=== PATIENT | male | born 1950 | race Caucasian/White ===

== ENCOUNTER → 2023-07-29 10:09 | Outpatient (REF) | payer MEDICARE, OTHER, SELFPAY ==
[2023-07-29 13:45] LABS: TSH 5.21 uIU/ml (0.47-4.68)
== END ==
LOC: REG 10:09
PROVIDERS: ATTENDING PHYSICIAN Internal Medicine Endocrinology, Diabetes & Metabolism; FAMILY PHYSICIAN Family Medicine
DX: E89.0 Postprocedural hypothyroidism (principal)
CPT/HCPCS: 36415; 84443

== ENCOUNTER 2023-08-08 14:19 | Outpatient (RCR) | payer MEDICARE, OTHER, SELFPAY | END 2023-08-08 23:59 | disposition home or self-care (01) | LOC: ROT 14:19 | PROVIDERS: ATTENDING PHYSICIAN Psychiatry & Neurology Neurology; FAMILY PHYSICIAN Family Medicine | DX: R41.3 Other amnesia (principal); Z73.6 Limitation of activities due to disability; R41.841 Cognitive communication deficit; R47.02 Dysphasia; E05.00 Thyrotoxicosis with diffuse goiter without thyrotoxic crisis or storm; R25.1 Tremor, unspecified | CPT/HCPCS: 96125; 97129; 97130; 97167; 97530; 97535 ==

== ENCOUNTER 2023-09-09 13:39 | Outpatient (RCR) | payer MEDICARE, OTHER, SELFPAY | END 2023-09-09 23:59 | disposition home or self-care (01) | LOC: ROT 13:39 | PROVIDERS: ATTENDING PHYSICIAN Psychiatry & Neurology Neurology; FAMILY PHYSICIAN Family Medicine | DX: R41.3 Other amnesia (principal); R41.841 Cognitive communication deficit; R47.02 Dysphasia | CPT/HCPCS: 97129; 97130; 97530; 97535 ==

== ENCOUNTER 2023-09-20 06:49 | Outpatient (RCR) | payer MEDICARE, OTHER, SELFPAY | END 2023-09-24 14:59 | disposition home or self-care (01) | LOC: ROT 06:49 | PROVIDERS: ATTENDING PHYSICIAN Psychiatry & Neurology Neurology; FAMILY PHYSICIAN Family Medicine | DX: R41.3 Other amnesia (principal); R41.0 Disorientation, unspecified; R41.841 Cognitive communication deficit; R47.02 Dysphasia; Z73.6 Limitation of activities due to disability | CPT/HCPCS: 97129; 97130; 97530; 97535 ==

== ENCOUNTER → 2023-11-12 09:06 | Outpatient (REF) | payer MEDICARE, OTHER, SELFPAY ==
[2023-11-12 10:11] LABS: % Basophils 0.8 % (0-2); % Eosinophils 1.4 % (0-6); % Immature Granulocytes 0.3 % (0-0.5); % Lymphocytes 38.7 % (20.5-51.1); % Monocytes 10.1 % (1.7-9.3); % Neutrophils 48.7 % (42.2-75.2); Absolute Eosinophils 0.1 10^3/uL (0-0.7); Absolute Lymphocytes 1.4 10^3/uL (1.2-3.4); Absolute Monocytes 0.4 10^3/uL (0.1-0.6); Absolute Neutrophils 1.7 10^3/uL (1.4-6.5); Hematocrit 42.7 % (39.0-52.0); Hemoglobin 14.6 g/dL (13.0-18.0); Mean Corp Hgb Conc. 34.2 g/dL (33.0-37.0); Mean Corpuscular Hgb 31.3 pg (27.0-31.0); Mean Corpuscular Volume 91.4 fL (80.0-94.0); Mean Platelet Volume 9.1 fL (7.4-10.4); Nucleated Red Blood Cells % 0 % (-); Platelet Count 177 10^3/uL (130-400); Red Blood Cell Count 4.67 10^6/uL (4.70-6.10); Red Cell Dist. Width 13.6 % (11.5-14.5); White Blood Cell Count 3.6 10^3/uL (4.8-10.8)
[2023-11-12 10:59] LABS: ALT (SGPT) 20 U/L (0-50); AST (SGOT) 32 U/L (17-59); Albumin 4.4 g/dl (3.5-5.0); Alkaline Phosphatase 62 U/L (38-126); Blood Urea Nitrogen 21 mg/dl (9-20); Calcium 9.7 mg/dl (8.4-10.2); Carbon Dioxide 28 mmol/L (22-30); Chloride 103 mmol/L (98-107); Glucose 93 mg/dl (70-99); HDL Cholesterol 68 mg/dl; LDL Cholesterol, Calculated 162 mg/dl; Potassium 4.4 mmol/L (3.5-5.1); Sodium 139 mmol/L (135-145); Total Bilirubin 0.8 mg/dl (0.2-1.3); Total Cholesterol 244 mg/dl (50-199); Triglyceride 70 mg/dl (10-149); Very Low Density Lipoprotein 14 mg/dl (0-30); eGFR > 60.00
[2023-11-12 11:24] LABS: PSA, Total - Screen 2.67 ng/ml (0.0-4.0)
== END ==
LOC: REG 09:06
PROVIDERS: ATTENDING PHYSICIAN Family Medicine
DX: I10 Essential (primary) hypertension (principal); R79.9 Abnormal finding of blood chemistry, unspecified; Z12.5 Encounter for screening for malignant neoplasm of prostate
CPT/HCPCS: 36415; 80053; 80061; 85025; G0103

== ENCOUNTER 2023-12-05 14:19 | Outpatient (RCR) | payer MEDICARE, OTHER, SELFPAY | END 2023-12-05 15:08 | disposition home or self-care (01) | LOC: RPT 14:19 | PROVIDERS: ATTENDING PHYSICIAN Physical Medicine & Rehabilitation; FAMILY PHYSICIAN Family Medicine | DX: M47.816 Spondylosis without myelopathy or radiculopathy, lumbar region (principal); M53.86 Other specified dorsopathies, lumbar region; Z73.6 Limitation of activities due to disability | CPT/HCPCS: 97110; 97112; 97140; 97162; 97530 ==

== ENCOUNTER → 2024-02-08 08:56 | Outpatient (REF) | payer MEDICARE, OTHER, SELFPAY | LOC: REG 08:56 | PROVIDERS: ATTENDING PHYSICIAN Internal Medicine Endocrinology, Diabetes & Metabolism | DX: E89.0 Postprocedural hypothyroidism (principal) | CPT/HCPCS: 36415; 84443 ==

== ENCOUNTER 2024-07-08 06:28 | Day surgery (SDC) | payer MEDICARE, OTHER, SELFPAY ==
[2024-07-08 06:48] VITALS: BMI 20.8
[2024-07-08 07:01] VITALS: BP 143/77
[2024-07-08 07:10] LABS: Hematocrit 44.6 % (39.0-52.0); Mean Corp Hgb Conc. 33.6 g/dL (33.0-37.0); Mean Corpuscular Hgb 32.2 pg (27.0-31.0); Mean Corpuscular Volume 95.7 fL (80.0-94.0); Mean Platelet Volume 8.9 fL (7.4-10.4); Platelet Count 165 10^3/uL (130-400); Red Blood Cell Count 4.66 10^6/uL (4.70-6.10); Red Cell Dist. Width 13.6 % (11.5-14.5); White Blood Cell Count 4.3 10^3/uL (4.8-10.8)
[2024-07-08] MEDS: VANCOCIN 200 IV (07:10)
[2024-07-08 07:24] LABS: ALT (SGPT) 22 U/L (0-50); AST (SGOT) 32 U/L (17-59); Albumin 4.4 g/dl (3.5-5.0); Alkaline Phosphatase 61 U/L (38-126); Blood Urea Nitrogen 25 mg/dl (9-20); Carbon Dioxide 31 mmol/L (22-30); Chloride 103 mmol/L (98-107); Estimated Creatinine Clearance 58 ml/min; Glucose 96 mg/dl (70-99); Potassium 4.2 mmol/L (3.5-5.1); Sodium 138 mmol/L (135-145); Total Bilirubin 0.9 mg/dl (0.2-1.3); Total Protein 7.2 g/dl (6.3-8.2); eGFR > 60.00
--- NOTE | 2024-07-08 07:41 | PTCARENOTE ---
Pt arrived from home with pt's for a Medtronic dual chamber pacemaker generator change. Pt initally unable to state his name or . Pt's states pt has dementia for 2-3 years and 'his memory comes and goes.' Pt able to answer some
questions but not all questions. Once pt questioned again, pt able to answer his name and date of . Dr Rizzo made aware and in to evaluate pt. Pt's at pt bedside. No treatment ordered at this time.
[2024-07-08 08:49] VITALS: BP 128/76
--- NOTE | 2024-07-08 09:06 | ITS.CL.PACE ---
[facility] - Pacemaker Implant
Pacemaker Implant
Procedure Report:
PACEMAKER GENERATOR CHANGE
Date of Procedure: 07/08/24
Primary Care Provider: Dr Suma Lyons
PROCEDURES:
1. Removal of dual chamber PPM generator at [facility]
2. Implant of new dual chamber PPM generator
INDICATION FOR PROCEDURE:
1. PPM generator at [facility]
2. Non-reversible symptomatic bradycardia due to sinus node dysfunction.
The patient was prepped and draped in sterile fashion. Lidocaine with epi was used for local anesthesia. An incision was made along the previous incision and the device and leads were carefully dissected from the pocket. Hemostasis was obtained
with electrocautery. The leads were from the device header and tested using an external analyzer. The pocket was liberally irrigated with antibiotic solution. Once testing (see below) showed adequate and stable function, the leads were
connected to the generator header and the leads and generator were placed within the pocket. The pocket was closed in the typical fashion.
EXPLANTED PPM GENERATOR:
Medtronic [id number], serial number [id number]
IMPLANTED PPM GENERATOR:
Medtronic [id number], SN [id number]
RETAINED LEADS:
Existing RA lead: Medtronic 5076, PJ [id number], implanted 04/09/2005
Existing RVLead: Medtronic 5076, PJ [id number], implanted 04/09/2005
DEVICE TESTING:
Sensing: RA 1.5 mV, RV 4 mV
Capture: RA 1.5 V @ 0.4ms, RV 2 V @ 0.4ms
Ohms: RA 420, RV 530
FINAL PROGRAMMING
Usman Pacing: AAIR <=>DDDR 60 - 130 ppm
COMPLICATIONS:
None
CONCLUSIONS:
1. Successful explant of dual chamber permanent pacemaker
2. Successful implant of dual chamber permanent pacemaker
RECOMMENDATIONS:
1. In-Office wound check in 7-10 days.
Copy to: Dr Suma Lyons
== END 2024-07-08 10:15 | disposition home or self-care (01) ==
LOC: CATH 06:28
PROVIDERS: ATTENDING PHYSICIAN Internal Medicine Cardiovascular Disease; FAMILY PHYSICIAN Family Medicine
DX: Z45.010 Encounter for checking and testing of cardiac pacemaker pulse generator [battery] (principal); I49.5 Sick sinus syndrome; Z79.890 Hormone replacement therapy; Z79.899 Other long term (current) drug therapy; Z88.1 Allergy status to other antibiotic agents
CPT/HCPCS: 33228; 80053; 85027; C1785

== ENCOUNTER → 2024-08-10 12:17 | Outpatient (REF) | payer MEDICARE, OTHER, SELFPAY | LOC: REG 12:17 | PROVIDERS: ATTENDING PHYSICIAN Internal Medicine Endocrinology, Diabetes & Metabolism | DX: E89.0 Postprocedural hypothyroidism (principal) | CPT/HCPCS: 36415; 84443 ==

== ENCOUNTER 2024-10-07 16:27 | Outpatient (RCR) | payer MEDICARE, OTHER, SELFPAY | END 2024-10-07 23:59 | disposition home or self-care (01) | LOC: ROT 16:27 | PROVIDERS: ATTENDING PHYSICIAN Nurse Practitioner Adult Health; FAMILY PHYSICIAN Family Medicine | DX: R41.3 Other amnesia (principal); Z73.6 Limitation of activities due to disability; R26.89 Other abnormalities of gait and mobility; F03.90 Unspecified dementia, unspecified severity, without behavioral disturbance, psychotic disturbance, mood disturbance, and anxiety; E05.00 Thyrotoxicosis with diffuse goiter without thyrotoxic crisis or storm | CPT/HCPCS: 97167; 97530; 97535 ==

== ENCOUNTER 2024-10-15 16:41 | Outpatient (RCR) | payer MEDICARE, OTHER, SELFPAY | END 2024-10-15 23:59 | disposition home or self-care (01) | LOC: ROT 16:41 | PROVIDERS: ATTENDING PHYSICIAN Nurse Practitioner Adult Health; FAMILY PHYSICIAN Family Medicine | DX: R41.3 Other amnesia (principal); R26.89 Other abnormalities of gait and mobility; F03.90 Unspecified dementia, unspecified severity, without behavioral disturbance, psychotic disturbance, mood disturbance, and anxiety; E05.00 Thyrotoxicosis with diffuse goiter without thyrotoxic crisis or storm; Z73.6 Limitation of activities due to disability | CPT/HCPCS: 97535 ==

== ENCOUNTER 2024-11-16 22:13 | Emergency (ER) | payer MEDICARE, OTHER, SELFPAY ==
[2024-11-16 22:16] VITALS: BMI 19.0
[2024-11-16 22:44] LABS: Hematocrit 42.0 % (39.0-52.0); Hemoglobin 14.4 g/dL (13.0-18.0); Mean Corp Hgb Conc. 34.3 g/dL (33.0-37.0); Mean Corpuscular Volume 92.1 fL (80.0-94.0); Nucleated Red Blood Cells % 0 % (-); Platelet Count 158 10^3/uL (130-400); Red Cell Dist. Width 14.3 % (11.5-14.5)
[2024-11-16 23:13] LABS: Blood Urea Nitrogen 22 mg/dl (9-20); Calcium 9.4 mg/dl (8.4-10.2); Carbon Dioxide 24 mmol/L (22-30); Chloride 107 mmol/L (98-107); Estimated Creatinine Clearance 55 ml/min; Glucose 91 mg/dl (70-99); Sodium 138 mmol/L (135-145); eGFR > 60.00
[2024-11-16 23:38] VITALS: BP 146/78
[2024-11-17 00:11] VITALS: BP 160/90
--- NOTE | 2024-11-17 00:15 | ED.GENMED ---
History of Present Illness
General
Chief Complaint: Fall
Source: patient and spouse
Time Seen by Provider: 11/17/24 00:04
History of Present Illness
History of Present Illness:
This patient is a 74-year-old male who had a fall earlier this evening. His was next to him but was looking in the refrigerator and did not see what caused him to fall. He did hit his head on the ground. There was no loss of consciousness
and he does not appear to be behaving differently than usual. However, she called EMS given her concerns that he may have suffered injury as a result of the fall. Patient has a history of dementia, and as per her report sometimes has falls or
bumps into things. The patient denies any complaints. He specifically denies headache, neck pain, chest pain, shortness of breath.
Past History
Past History
ED Past Medical History: HTN, Hypercholesterolemia, Hypothyroidism (After ablation for Graves' disease), Other (BPH) and Other (DVT 2010 left upper extremity, factor V Leiden, iron deficiency anemia, hypothyroidism, Graves' disease, sick sinus
syndrome,)
ED Past Surgical History: Cardiac (Pacemaker)
Social History
Tobacco: Non-smoker
Alcohol: None
Drug: None
Personal:
Living: with family
Phy Exam
Physical Exam
Physical Exam:
GENERAL: Alert , in no apparent distress
EYE: pupils equal and reactive, EOMI, no nystagmus, no photophobia
NECK: Supple, no significant adenopathy, no midline tenderness.
ENT: o/p clr, mmm, no signs of head or facial injury noted, no barahona, no raccoon.
CARDIAC: Regular rate and rhythm .
LUNGS: Clear breath sounds bilaterally, no acute respiratory distress, no wheezes/rales/rhonchi
ABDOMEN: Soft, without focal tenderness, no r/g, no cvat
NEUROLOGICAL: Alert and oriented to person but does not answer to place or time, uncooperative with formal logical exam, moves all extremities equally, no facial droop, speech clear
SKIN: Warm and dry, skin intact. There are resolving abrasions noted at the left anterior tib-fib area without secondary infection or drainage
MUSCULOSKELETAL: Mild soft tissue swelling and tenderness to palpation noted at the lateral aspect of the left midfoot without associated break in skin, bruising, etc., well perfused.
PSYCH: Normal and appropriate interaction.
Course
Orders/Labs/Results
Orders:
Orders
11/16/24 22:30
Basic Metabolic Panel Urgent
Complete Blood Count/With Diff Urgent
11/17/24 00:12
CT Cervical Spine W/o Iv Contr Urgent
Comment:
Reason For Exam: fall, dementia
11/17/24 00:13
CT Head W/o Iv Contrast Urgent
Comment:
Reason For Exam: fall, dementia
11/17/24 00:14
Foot, Left 3 View [CR Foot - Left Min 3 Views] Urgent
Comment:
Reason For Exam: pain, lateral midfoot
11/17/24 03:29
Urinalysis Reflex To Culture Urgent
Date Specimen was Collected: 11/17/24
Time Specimen was Collected: 03:28
Abnormal Lab Results
11/16/24
22:30
RBC 4.56 L 10^6/uL
(4.70-6.10)
MCH 31.6 H pg
(27.0-31.0)
BUN 22 H mg/dl
(9-20)
11/16/24 22:30
11/16/24 22:30
Vital Signs
Initial and Last Documented VS:
Initial Vital Signs
Temp Pulse Resp Pulse Ox
98.4 F 74 18 98
11/16/24 22:16 11/16/24 22:16 11/16/24 22:16 11/16/24 22:16
Last Documented Vital Signs
Temp Pulse Resp BP Pulse Ox
98.4 F 74 18 160/90 99
11/16/24 22:16 11/17/24 00:30 11/17/24 00:30 11/17/24 00:11 11/17/24 00:18
*Pulse Oximetry
SaO2: 99
Oxygen Mode of Delivery: Room air
Update Note
Update Note:
Patient presents to the Emergency Department with ___fall
Number and Complexity of Problems Addressed at the Encounter
� Chronic conditions affecting care:
� Acute Exacerbation and/or Progression of Chronic Illness:
� Differential Diagnosis includes: But not limited to cervical fracture, intracranial bleed, foot fracture, severe anemia, electrolyte disorder, etc. etc.
Amount and/or Complexity of Data to be Reviewed and Analyzed
� I performed an independent evaluation of and my interpretation is:
EKG:
CT: Vision report no hemorrhage or other evidence of trauma sequela of chronic microvascular disease global parenchymal volume loss. No acute osseous trauma of cervical spine vertebral body heights intact minimal chronic
anterior listhesis C7 over T1 craniocervical junction normal multilevel degeneration
Xrays:foot xray nad
Laboratory Studies: Generally unremarkable
Other:
� Review of other/old records reveals:
� Clinical information was obtained by an independent historian:
� Prescriptions/Medications Considered but not given:
� Further testing considered but not performed:
Risk of Complications and/or Morbidity or Mortality of Patient Management
� Social determinants of health affecting care:
� Discussion with other providers (PCP, Hospitalists, Consultants, etc):
� Escalation of care including admission/observation vs risk of discharge considered: Patient has been walking around the room, acting appropriately, no acute complaints. eager to be discharged home with him. If CT
unremarkable for acute illness he will be eligible for discharge with close follow-up.
ED Attending Note
-
Portions of this chart may have been created with voice recognition software.� Occasional wrong word or��sound alike� substitutions may have occurred due to the inherent limitations of voice recognition software.
Discharge Plan
Departure
Patient Disposition: Home (Routine Discharge)
Date of Disposition: 11/17/24
Time of Disposition: 03:50
Patient with high blood pressure during this ER visit?: Yes
Condition: Good
Discharge Problem:
Fall
Instructions: Preventing falls in adults, BLOOD PRESSURE
Prescriptions:
No Action
lisinopril 20 MG tablet
20 mg PO DAILY
levothyroxine 100 mcg Tablet
100 mcg PO DAILY
Referrals:
Suma Lyons MD [Family Provider, [facility]] - Tomorrow
Activity Restrictions/Additional Instructions:
IF CALLIE DEVELOPS CONFUSION, NECK PAIN, HEADACHE, VOMITING, CHEST PAIN, SHORTNESS OF BREATH, DIZZINESS, OR OTHER WORRISOME SIGNS, PLEASE RETURN TO THE ER IMMEDIATELY!
Interventions
Interventions:
*Risk Screen - Suicide Last Done: 11/16/24 22:16
*General Assessment Last Done: 11/16/24 22:16
*Neglect/Abuse Screening Last Done: 11/16/24 22:16
*ED- Fall Risk Assessment Last Done: 11/16/24 22:16
*ED COVID-19 Vaccine History Last Done: 11/16/24 22:16
ED-Musculoskeletal Assessment Last Done: 11/16/24 23:40
ED- Neurological Assessment Last Done: 11/16/24 23:40
ED-Skin Assessment Last Done: 11/16/24 23:40
Discharge Date and Time
Print Language: CAMBODIAN
[2024-11-17 03:46] LABS: Urine Character Clear (Clear)
[2024-11-17 03:55] LABS: Urine Red Blood Cell 0-2 /HPF (0-2); Urine White Cell 0-2 /HPF (0-5)
== END 2024-11-17 03:58 | disposition home or self-care (01) ==
LOC: EMR 22:13
PROVIDERS: Student in an Organized Health Care Education/Training Program; EMERGENCY PHYSICIAN Emergency Medicine; FAMILY PHYSICIAN Family Medicine
DX: Z04.3 Encounter for examination and observation following other accident (principal); W19.XXXA Unspecified fall, initial encounter; R22.42 Localized swelling, mass and lump, left lower limb; D68.51 Activated protein C resistance; E03.9 Hypothyroidism, unspecified; E78.00 Pure hypercholesterolemia, unspecified; F03.90 Unspecified dementia, unspecified severity, without behavioral disturbance, psychotic disturbance, mood disturbance, and anxiety; I10 Essential (primary) hypertension; Z86.718 Personal history of other venous thrombosis and embolism; Z95.0 Presence of cardiac pacemaker
CPT/HCPCS: 99284; 70450; 72125; 73630; 80048; 81003; 81015; 85025

== ENCOUNTER 2024-12-14 16:43 | Emergency (ER) | payer MEDICARE, OTHER, SELFPAY ==
[2024-12-14 16:51] VITALS: BP 139/80
[2024-12-14 17:19] LABS: Hematocrit 41.5 % (39.0-52.0); Hemoglobin 13.7 g/dL (13.0-18.0); Mean Corp Hgb Conc. 33.0 g/dL (33.0-37.0); Mean Corpuscular Volume 94.7 fL (80.0-94.0); Nucleated Red Blood Cells % 0 % (-); Platelet Count 175 10^3/uL (130-400); Red Cell Dist. Width 14.7 % (11.5-14.5)
[2024-12-14 17:28] LABS: ALT (SGPT) 35 U/L (0-50); AST (SGOT) 81 U/L (17-59); Albumin 4.4 g/dl (3.5-5.0); Alkaline Phosphatase 72 U/L (38-126); Blood Urea Nitrogen 23 mg/dl (9-20); Calcium 9.0 mg/dl (8.4-10.2); Carbon Dioxide 25 mmol/L (22-30); Chloride 104 mmol/L (98-107); Glucose 93 mg/dl (70-99); Potassium 4.2 mmol/L (3.5-5.1); Sodium 136 mmol/L (135-145); Total Protein 7.1 g/dl (6.3-8.2); eGFR > 60.00
[2024-12-14 20:31] VITALS: BP 146/85
--- NOTE | 2024-12-14 21:06 | ED.GENMED ---
History of Present Illness
General
Chief Complaint: Fall
Source: patient and spouse
Time Seen by Provider: 12/14/24 20:46
History of Present Illness
History of Present Illness:
74-year-old male presents to the emergency room with his for evaluation of a head injury. Patient had a fall couple days ago in his home. Patient was getting dressed when he lost his balance and fell. He had a limited diarrhea for the
preceding day which his felt made him weaker than normal. She was not initially concerned about the fall but he has developed significant ecchymosis about the right eye which is tracked down to his neck. Patient is demented and unable to
provide any history. However his states he is acting at his baseline.
Past History
Past History
ED Past Medical History: HTN, Hypercholesterolemia, Hypothyroidism (After ablation for Graves' disease), Other (BPH) and Other (DVT 2010 left upper extremity, factor V Leiden, iron deficiency anemia, hypothyroidism, Graves' disease, sick sinus
syndrome,)
ED Past Surgical History: Cardiac (Pacemaker)
Social History
Tobacco: Non-smoker
Alcohol: None
Drug: None
Personal:
Living: with family
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
Phy Exam
Physical Exam
Physical Exam:
General: Awake, Alert, Oriented X1. No acute distress.
Vitals: unremarkable
Head: Ecchymosis right temporal region as well as the right zygomatic region. The appears to be a mild hematoma about the right zygoma. Ecchymosis about the right eye. Ecchymosis then tracks down to the mandible and anterior neck.
Eyes: Pupils equal, EOMI, mild right eye subconjunctival hemorrhage
Throat: Airway intact, no exudates
Neck: Trachea midline
Lungs: Clear and equal b/l
Heart: Regular rate, no murmurs
Abd: Soft, Nontender, No pulsatile mass
Neuro: Nonfocal
Skin: Warm, dry, no rash
Extremities: pulses equal b/l, no edema
Course
Orders/Labs/Results
Orders:
Orders
12/14/24 16:55
CT Head W/o Iv Contrast Urgent
Comment:
Reason For Exam: fall
CT Orbits W/o Iv Contrast Urgent
Comment:
Reason For Exam: fall
12/14/24 17:00
CT Cervical Spine W/o Iv Contr Urgent
Comment:
Reason For Exam: fall
12/14/24 17:05
Complete Blood Count/With Diff Urgent
Comprehensive Metabolic Panel Urgent
Abnormal Lab Results
12/14/24
17:05
RBC 4.38 L 10^6/uL
(4.70-6.10)
MCV 94.7 H fL
(80.0-94.0)
MCH 31.3 H pg
(27.0-31.0)
RDW 14.7 H %
(11.5-14.5)
BUN 23 H mg/dl
(9-20)
Total Bilirubin 1.4 H mg/dl
(0.2-1.3)
AST 81 H U/L
(17-59)
12/14/24 17:05
12/14/24 17:05
Vital Signs
Initial and Last Documented VS:
Initial Vital Signs
Temp Pulse Resp BP Pulse Ox
98 F 63 16 139/80 97
12/14/24 16:51 12/14/24 16:51 12/14/24 16:51 12/14/24 16:51 12/14/24 16:51
Last Documented Vital Signs
Temp Pulse Resp BP Pulse Ox
98.5 F 68 16 146/85 98
12/14/24 20:31 12/14/24 20:31 12/14/24 16:51 12/14/24 20:31 12/14/24 21:08
MDM/Problems Addressed
Differential Diagnosis Includes:
Contusion, or fracture, zygoma fracture, subdural
MDM/Problems Addressed:
Patient presents with right facial trauma. He has a palpable hematoma and much of the ecchymosis I believe is related to gravity dispersing hematoma breakdown. CT shows no acute intracranial abnormality or facial fracture. Patient does not take
oral anticoagulants. Stable for discharge home.
Of note patient not able to provide any history due to dementia and history provided by
*Radiology
Radiology exam reviewed: radiology read reviewed
*Pulse Oximetry
SaO2: 98
Oxygen Mode of Delivery: Room air
Patient hypoxic: no
*Critical Care Note
Total Time (30-74mins, 75-104mins- exclusive of procedures): Not Applicable
ED Attending Note
-
Portions of this chart may have been created with voice recognition software.� Occasional wrong word or��sound alike� substitutions may have occurred due to the inherent limitations of voice recognition software.
Discharge Plan
Departure
Patient Disposition: Home (Routine Discharge)
Date of Disposition: 12/14/24
Time of Disposition: 21:24
Patient with high blood pressure during this ER visit?: Yes
Condition: Good
Discharge Problem:
Contusion of face, Head injury
Instructions: Head Injury in Adults (DC), Contusion (DC)
Prescriptions:
No Action
lisinopril 20 MG tablet
20 mg PO DAILY
levothyroxine 100 mcg Tablet
100 mcg PO DAILY
Referrals:
UNKNOWN - PT DOES,NOT KNOW [Family Provider]
Activity Restrictions/Additional Instructions:
The CAT scan showed no new injuries or problems. The CAT scan does show that at some point in the past Juan Ramon had a small subdural hematoma. Because this is chronic there is nothing to do about it but just so you know about that finding. CAT scan
of the neck shows severe arthritis.
Interventions
Interventions:
*Risk Screen - Suicide Last Done: 12/14/24 16:54
*General Assessment Last Done: 12/14/24 16:54
*Neglect/Abuse Screening Last Done: 12/14/24 21:56
*ED- Fall Risk Assessment Last Done: 12/14/24 21:56
*ED COVID-19 Vaccine History Last Done: 12/14/24 16:54
*Nursing Disposition Last Done: 12/14/24 21:56
ED-Musculoskeletal Assessment Last Done: 12/14/24 21:30
ED- Neurological Assessment Last Done: 12/14/24 21:30
ED-Skin Assessment Last Done: 12/14/24 21:30
Discharge Date and Time
Discharge Date/Time: 12/14/24 21:56
Print Language: GEORGIAN
== END 2024-12-14 21:56 | disposition home or self-care (01) ==
LOC: EMR 16:43
PROVIDERS: Emergency Medicine; EMERGENCY PHYSICIAN Emergency Medicine
DX: S00.11XA Contusion of right eyelid and periocular area, initial encounter (principal); S09.90XA Unspecified injury of head, initial encounter; F03.90 Unspecified dementia, unspecified severity, without behavioral disturbance, psychotic disturbance, mood disturbance, and anxiety; I10 Essential (primary) hypertension; E78.00 Pure hypercholesterolemia, unspecified; I49.5 Sick sinus syndrome; Z95.0 Presence of cardiac pacemaker; D68.51 Activated protein C resistance; D50.9 Iron deficiency anemia, unspecified; E05.00 Thyrotoxicosis with diffuse goiter without thyrotoxic crisis or storm; E03.9 Hypothyroidism, unspecified; N40.0 Benign prostatic hyperplasia without lower urinary tract symptoms; Z86.718 Personal history of other venous thrombosis and embolism; W18.39XA Other fall on same level, initial encounter; Y92.009 Unspecified place in unspecified non-institutional (private) residence as the place of occurrence of the external cause
CPT/HCPCS: 99284; 70450; 70480; 72125; 80053; 85025

== ENCOUNTER → 2025-02-11 11:39 | Outpatient (REF) | payer MEDICARE, OTHER, SELFPAY ==
[2025-02-11 14:22] LABS: TSH 71.30 uIU/ml (0.47-4.68)
== END ==
LOC: REG 11:39
PROVIDERS: ATTENDING PHYSICIAN Internal Medicine Endocrinology, Diabetes & Metabolism; FAMILY PHYSICIAN Family Medicine
DX: E89.0 Postprocedural hypothyroidism (principal)
CPT/HCPCS: 36415; 84443

== ENCOUNTER → 2025-03-10 12:17 | Outpatient (REF) | payer MEDICARE, OTHER, SELFPAY | LOC: RAD 12:17 | PROVIDERS: ATTENDING PHYSICIAN Family Medicine | DX: M54.50 Low back pain, unspecified (principal) | CPT/HCPCS: 72110 ==

== ENCOUNTER 2025-03-17 18:03 | Observation (INO) | payer MEDICARE, OTHER, SELFPAY ==
[2025-03-17 14:09] VITALS: BP 125/81
[2025-03-17] MEDS: PERCOCET 5/325 1 TABLET PO (14:37)
--- NOTE | 2025-03-17 15:14 | ED.GENMED ---
History of Present Illness
General
Chief Complaint: Back Pain
Time Seen by Provider: 03/17/25 14:20
History of Present Illness
History of Present Illness:
74-year-old male with history of hypertension and Alzheimer's presents to the emergency department with his spouse via EMS for evaluation of severe low back pain and difficulty walking. Spouse indicates he has had diarrhea over the course of the
weekend. He apparently had a fall this weekend and landed on his back. He is complaining of predominantly low back pain but is not a strong historian. He is noted to have ecchymosis to the left hip as well.
Past History
Past History
ED Past Medical History: HTN, Hypercholesterolemia, Hypothyroidism (After ablation for Graves' disease), Other (BPH) and Other (DVT 2010 left upper extremity, factor V Leiden, iron deficiency anemia, hypothyroidism, Graves' disease, sick sinus
syndrome,)
ED Past Surgical History: Cardiac (Pacemaker)
Social History
Tobacco: Non-smoker
Alcohol: None
Drug: None
Personal:
Living: with family
Employment: Employed (Crew Truck Driver)
Review of Systems
Review of Systems
Allergies reviewed?: Yes
All Other Systems: ROS reviewed and negative except as documented in HPI and ROS
Phy Exam
Physical Exam
Physical Exam:
GEN: Well appearing, NAD, WDWN
HEENT: Oral mucosa moist, no scleral icterus
Cardiac: Regular rate
Lung: No respiratory distress, no tachypnea
MSK: Minor ecchymosis to the left lateral hip however no deformity is noted, range of motion elicits significant pain. There is tenderness diffusely across the lumbar paraspinous and midline spinous processes
Skin: Good color, no pallor or jaundice, no rashes
Neuro: Alert, follows commands, pleasantly confused
Psych: Calm, cooperative
Course
Orders/Labs/Results
Orders:
Orders
03/17/25 14:25
Oxycodone/Acetaminophen [Percocet 5/325] 1 tablet PO NOW STA
CR Lumbar Spine Comp Min 4 Vw* Urgent
Comment:
Reason For Exam: fall low back pain
03/17/25 14:40
CR Hip - LT w/wo Pel 2-3 Vw* Urgent
Comment:
Reason For Exam: fall
Include a pelvis x-ray?: Yes
03/17/25 15:34
Lactated Ringers [Lr] 1,000 ml IV BOLUS
03/17/25 15:48
Complete Blood Count/With Diff Urgent
Comprehensive Metabolic Panel Urgent
03/17/25 17:01
HYDROmorphone [Dilaudid] 0.25 mg IV NOW STA
Abnormal Lab Results
03/17/25
15:48
RBC 4.08 L 10^6/uL
(4.70-6.10)
MCV 97.3 H fL
(80.0-94.0)
MCH 32.6 H pg
(27.0-31.0)
Absolute Monos (auto) 0.7 H 10^3/uL
(0.1-0.6)
Lymphocytes % 20.0 L %
(20.5-51.1)
Monocytes % 11.3 H %
(1.7-9.3)
Sodium 134 L mmol/L
(135-145)
BUN 24 H mg/dl
(9-20)
Glucose 102 H mg/dl
(70-99)
03/17/25 15:48
03/17/25 15:48
Vital Signs
Initial and Last Documented VS:
Initial Vital Signs
Temp Pulse Resp BP Pulse Ox
98.8 F 98 18 125/81 98
03/17/25 14:09 03/17/25 14:09 03/17/25 14:09 03/17/25 14:09 03/17/25 14:09
Last Documented Vital Signs
Temp Pulse Resp BP Pulse Ox
98.8 F 98 18 125/81 98
03/17/25 14:09 03/17/25 14:09 03/17/25 14:09 03/17/25 14:09 03/17/25 15:14
MDM/Problems Addressed
MDM/Problems Addressed:
Patient's pain is quite severe and he is quite functionally declined secondary to his dementia, he is not a safe discharge given the new thoracic compression fractures thus we will admit him for further management
*Pulse Oximetry
SaO2: 98
Oxygen Mode of Delivery: Room air
Patient hypoxic: no
*Critical Care Note
Total Time (30-74mins, 75-104mins- exclusive of procedures): Not Applicable
ED Attending Note
-
Portions of this chart may have been created with voice recognition software.� Occasional wrong word or��sound alike� substitutions may have occurred due to the inherent limitations of voice recognition software.
Discharge Plan
Departure
Patient Disposition: Admit
Date of Disposition: 03/17/25
Time of Disposition: 17:03
Admit to: Med/Surg
Presentation/result/management discussed w/ accepting MD/DO: Hospitalist
Discharge Problem:
Compression fracture of thoracic vertebra
Prescriptions:
No Action
lisinopril 20 MG tablet
20 mg PO DAILY
levothyroxine 100 mcg Tablet
100 mcg PO DAILY
Referrals:
Suam Lyons MD [Family Provider, Family Practice]
Interventions
Interventions:
*General Assessment Last Done: 03/17/25 14:09
Discharge Date and Time
Print Language: MOHAWK
[2025-03-17] MEDS: LR 1000 IV (15:52)
[2025-03-17 16:25] LABS: Hematocrit 39.7 % (39.0-52.0); Hemoglobin 13.3 g/dL (13.0-18.0); Mean Corp Hgb Conc. 33.5 g/dL (33.0-37.0); Mean Corpuscular Volume 97.3 fL (80.0-94.0); Nucleated Red Blood Cells % 0 % (-); Platelet Count 173 10^3/uL (130-400); Red Cell Dist. Width 13.8 % (11.5-14.5)
[2025-03-17 16:36] LABS: ALT (SGPT) 37 U/L (0-50); AST (SGOT) 37 U/L (17-59); Albumin 4.2 g/dl (3.5-5.0); Alkaline Phosphatase 107 U/L (38-126); Blood Urea Nitrogen 24 mg/dl (9-20); Calcium 9.4 mg/dl (8.4-10.2); Carbon Dioxide 29 mmol/L (22-30); Chloride 102 mmol/L (98-107); Glucose 102 mg/dl (70-99); Potassium 4.0 mmol/L (3.5-5.1); Sodium 134 mmol/L (135-145); Total Protein 7.1 g/dl (6.3-8.2); eGFR > 60.00
--- NOTE | 2025-03-17 17:21 | HPS.HSE ---
Family Physician
-
Family Physician: Suma Lyons
Chief Complaint
-
back pain
History of Present Illness
74-year-old male past medical history of hypertension, severe Alzheimer's disease, hypercholesteremia, Graves' disease status post ablation with residual hypothyroidism, BPH, DVT in 2010 of left upper extremity, factor V Leyden mutation, iron
deficiency anemia, sick sinus syndrome status post pacemaker, presenting for severe lower back pain and difficulty walking. He had a fall 2 days ago and since then he has not been able to walk that much. Pain in his lower back. He reportedly had
constipation but she gave him a stool softener and he had some diarrhea although the timing is unclear.
He has ecchymosis of the left hip.
Medical History
Past Medical History
Past Medical History: Reports Other (hypertension, severe Alzheimer's disease, hypercholesteremia, Graves' disease status post ablation with residual hypothyroidism, BPH, DVT in 2010 of left upper extremity, factor V Leyden mutation, iron deficiency
anemia, sick sinus syndrome status post pacemaker)
Past Surgical History: Reports None
Social History
Tobacco: Non-smoker
Alcohol: None
Drug: None
Family History
Family History: Not pertinent
Allergies / Home Medications
Allergies reflects when Allergies were last updated in [employer].
Home Medications with original date entered in [employer]
Allergy/Medication List:
Allergies
Allergy/AdvReac Type Severity Reaction Status Date / Time
amoxicillin trihydrate (From Allergy Rash Verified 03/17/25 14:09
Prevpac)
clarithromycin (From [facility]) Allergy Rash Verified 03/17/25 14:09
lansoprazole (From [facility]) Allergy Rash Verified 03/17/25 14:09
Home Medications
lisinopril 20 mg tablet 20 mg PO DAILY Blood Pressure 04/09/09
levothyroxine 100 mcg tablet 100 mcg PO DAILY Thyroid 07/08/24
rivastigmine 4.6 mg/24 hour transdermal patch 4.6 mg transdermal DAILY 03/17/25
therapeutic multivitamin 1 tab PO DAILY Supplement 03/17/25
Review of Systems
-
History Source: Patient
A 12 point ROS was completed and negative except as noted: Yes
Physical Exam
Vital Signs
Vital Signs
Temp Pulse Resp BP Pulse Ox
98.8 F 98 18 125/81 98
03/17/25 14:09 03/17/25 14:09 03/17/25 14:09 03/17/25 14:09 03/17/25 15:14
Physical Exam
General: Well Developed, Well Nourished and No Apparent Distress
HEENT: NormoCephalic, Moist mucous membranes and Atraumatic
Respiratory: Clear
Cardiac: S1/S2 and Regular Rhythm; No Murmur or Rub
GI: Soft, Non Tender, Non Distended and Normal Bowel Sounds; No Organomegaly
Rectal: Deferred by Provider
Musculoskeletal: No Clubbing, No Cyanosis, No Edema and Other (minor left hip ecchymosis )
Skin: No Rash
Neuro: Nonfocal/grossly intact
Laboratory Results
-
03/17/25 15:48
03/17/25 15:48
Laboratory Results
Total Bilirubin 0.8 mg/dl (0.2-1.3) 03/17/25 15:48
AST 37 U/L (17-59) 03/17/25 15:48
ALT 37 U/L (0-50) 03/17/25 15:48
Alkaline Phosphatase 107 U/L (38-126) 03/17/25 15:48
Data Reviewed
-
Lab Data: Labs Reviewed by me
Old Records: Reviewed
Impression/Plan
-
IMPRESSION:
PLAN:
# Ambulatory dysfunction with fall with T11 compression fracture
-Lumbar x-ray shows mild compression deformity of T11 vertebral body as well as mild superior endplate deformities of T12 and L1 vertebral bodies
-Hip x-ray shows no evidence of pelvic or proximal femoral fracture, severe discogenic disc disease of L5-S1
- PT OT
- Tylenol for pain
- Received oxycodone, but be very cautious with opiates due to advanced dementia
- IV fluids with patient appears dry
# Minor left hip ecchymosis from fall
- Continue to monitor
# Diarrhea after stool softener
- Continue to monitor
Seemingly advanced Alzheimer's dementia
- Patient reportedly walks however he has very minimal mental capacity and this seems doubtful
- Continue rivastigmine
Essential hypertension
- Continue lisinopril
Sick sinus syndrome status post pacemaker
History of DVT in 2009 of left upper extremity
Factor V Leyden mutation
- No longer on anticoagulation
Graves' disease status post ablation with residual hypothyroidism
- Continue levothyroxine
Hypercholesterolemia
BPH
- Bladder scan protocol
Iron deficiency anemia
Full code
DVT prophylaxis�heparin
Regular diet
[2025-03-17 17:35] VITALS: BP 122/70
--- NOTE | 2025-03-17 21:00 | PTCARENOTE ---
Pt transferred to . Pt pulled over from stretcher to bed. AAOx1, lethargic, drowsy, and confused. Admission questions completed with at bedside and all questions answered. Bed alarm in place, safety measures in place, call carnes within reach/
[2025-03-17 21:13] VITALS: BP 125/64; BMI 19.1
[2025-03-17] MEDS: NSS 1000 IV (21:46)
[2025-03-17] MEDS: HEPARIN 5000 UNITS SC (21:49)
[2025-03-17 23:17] VITALS: BP 138/76
[2025-03-18 07:30] VITALS: BP 122/64
[2025-03-18] MEDS: NSS 1000 IV ×2 (07:58→22:56)
[2025-03-18] MEDS: TYLENOL 650 MG PO (08:00)
[2025-03-18] MEDS: HEPARIN 5000 UNITS SC ×2 (08:01→20:02)
[2025-03-18 08:35] VITALS: BP 120/61; O2SAT 94
[2025-03-18 08:50] LABS: Hematocrit 36.7 % (39.0-52.0); Hemoglobin 12.4 g/dL (13.0-18.0); Mean Corp Hgb Conc. 33.8 g/dL (33.0-37.0); Mean Corpuscular Volume 95.3 fL (80.0-94.0); Nucleated Red Blood Cells % 0 % (-); Platelet Count 170 10^3/uL (130-400); Red Cell Dist. Width 13.7 % (11.5-14.5)
[2025-03-18 08:55] VITALS: BP 120/61; PULSE 62; O2SAT 99
[2025-03-18 09:55] LABS: ALT (SGPT) 30 U/L (0-50); AST (SGOT) 34 U/L (17-59); Albumin 3.5 g/dl (3.5-5.0); Alkaline Phosphatase 79 U/L (38-126); Blood Urea Nitrogen 16 mg/dl (9-20); Calcium 8.7 mg/dl (8.4-10.2); Carbon Dioxide 27 mmol/L (22-30); Chloride 105 mmol/L (98-107); Estimated Creatinine Clearance 67 ml/min; Glucose 82 mg/dl (70-99); Potassium 3.8 mmol/L (3.5-5.1); Sodium 134 mmol/L (135-145); Total Protein 6.1 g/dl (6.3-8.2); eGFR > 60.00
--- NOTE | 2025-03-18 10:40 | VNURNOTE ---
Chart reviewed. Patient is current with [facility]. Will continue to follow hospital course and DC plans.
--- NOTE | 2025-03-18 11:47 | W.PN.HOSP.TC ---
Today's Communication/Plan
-
CT left lower extremity pending to rule out occult fracture
Pain control
Monitor for p.o. intake
Assessment / Plan
Assessment / Plan
# Ambulatory dysfunction with fall with T11 compression fracture
-Lumbar x-ray shows mild compression deformity of T11 vertebral body as well as mild superior endplate deformities of T12 and L1 vertebral bodies
-Hip x-ray shows no evidence of pelvic or proximal femoral fracture, severe discogenic disc disease of L5-S1
- PT OT recs SNF. But spouse prefers home.
- Tylenol for pain medication 1000 mg 3 times daily
- IV fluids with patient appears dry
# Minor left hip ecchymosis from fall
- Continue to monitor
- Hip x-ray were negative for fracture. Working with physical therapy patient with severe pain and will order CAT scan to rule out occult fracture.
Seemingly advanced Alzheimer's dementia unknown if it behavioral disturbances
- Patient reportedly walks however he has very minimal mental capacity and this seems doubtful
- Continue rivastigmine
Essential hypertension
- Continue lisinopril
Sick sinus syndrome status post pacemaker
History of DVT in 2009 of left upper extremity
Factor V Leyden mutation
- No longer on anticoagulation
Graves' disease status post ablation with residual hypothyroidism
- Continue levothyroxine
Hypercholesterolemia
BPH
- Bladder scan protocol
Constipation with intermittent overflow diarrhea
- Continue with regular bowel movements recommended to add spouse
Iron deficiency anemia
Full code
DVT prophylaxis�heparin
Discussed with patient's mother at bedside in detail. She would prefer to take patient home as states with rehab and causes more confusion to patient.
Anticipated Discharge: Within 24 hours
Subjective/Interval History
-
Date of Service: March 18, 2025
Patient worked with physical therapy earlier today
Sitting in chair
About to eat breakfast. Looks tired.
Objective Data
-
Labs:
Laboratory Results
03/18/25
07:46
WBC 4.3 L
Hgb 12.4 L
Hct 36.7 L
Plt Count 170
Sodium 134 L
Potassium 3.8
Chloride 105
Carbon Dioxide 27
BUN 16
Creatinine 0.8
Glucose 82
Calcium 8.7
Total Bilirubin 1.1
AST 34
ALT 30
Alkaline Phosphatase 79
Vital Signs:
Vital Signs
Temp Pulse Resp BP Pulse Ox
97.5 F 61 16 122/64 97
03/18/25 07:30 03/18/25 07:30 03/18/25 07:30 03/18/25 07:30 03/18/25 07:30
Physical Exam
-
General: Well Developed and No Apparent Distress
HEENT: Normocephalic, Atraumatic and Moist Mucous Membranes
Respiratory: Clear to Auscultation
Cardiac: Regular Rhythm and S1/S2; Negative Murmur, Rub or Gallop
GI: Soft, Nontender, Nondistended and Normal Bowel Sounds; Negative Organomegaly
Rectal: Deferred by Provider
Musculoskeletal: No Clubbing, No Cyanosis and No Edema
Skin: Negative Rash
Neuro: Nonfocal/Grossly Intact
Psych: Calm and Apparent Dementia
Data Reviewed
-
Total Time Spent with Patient (in minutes): 55
[2025-03-18] MEDS: TYLENOL 1000 MG PO ×2 (14:29→22:56)
[2025-03-18 15:30] VITALS: BP 107/50
--- NOTE | 2025-03-18 15:53 | CM ---
CM reviewed chart, patient seen bedside with , initial assessment completed by .
Patient resides with who is primary caregiver, two level home, reports 12-13 steps to enter.
Patient master bedroom on second floor, patient has been sleeping in hospital bed on first floor.
Patient is current with [facility], has caregivers 3 days a week, about 5 hrs a day, through [facility] [employer], agreeable to adding additional services.
PCP Suma Lyons, Pharmacy [facility], confirms prescription coverage.
[facility] form verbally reviewed, provided with copy, placed in chart.
CM discussed therapy recommendation of SNF, patients would like to bring patient home with services and concerned patient would be confused at a facility.
CM will continue to follow for all d/c planning needs.
Plan; home with , [facility], and private caregivers
[2025-03-18] MEDS: SENOKOT-S 1 TABLET PO (20:02)
[2025-03-18] MEDS: FLOMAX 0.4 MG PO (22:56)
[2025-03-18 23:55] VITALS: BP 138/69
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
[2025-03-19 07:00] VITALS: BP 137/68
[2025-03-19] MEDS: TYLENOL 1000 MG PO (09:27)
[2025-03-19] MEDS: HEPARIN 5000 UNITS SC (09:28)
[2025-03-19] MEDS: SENOKOT-S 1 TABLET PO (09:29)
[2025-03-19] MEDS: NSS 1000 IV (09:34)
--- NOTE | 2025-03-19 11:48 | W.PN.HOSP.TC ---
Today's Communication/Plan
-
Home with [facility]
Tylenol
Flomax
Assessment / Plan
Assessment / Plan
# Ambulatory dysfunction with fall with T11 compression fracture
-Lumbar x-ray shows mild compression deformity of T11 vertebral body as well as mild superior endplate deformities of T12 and L1 vertebral bodies
-Hip x-ray shows no evidence of pelvic or proximal femoral fracture, severe discogenic disc disease of L5-S1
- PT OT recs SNF. But spouse prefers home.
- Tylenol for pain medication 1000 mg 3 times daily
- Can discontinue further fluids.
# Minor left hip ecchymosis from fall
- Continue to monitor
- Hip x-ray were negative for fracture. CT of the lower extremity negative for occult fracture.
Seemingly advanced Alzheimer's dementia unknown if it behavioral disturbances
- Patient reportedly walks however he has very minimal mental capacity and this seems doubtful
- Continue rivastigmine
Essential hypertension
- Continue lisinopril
Sick sinus syndrome status post pacemaker
History of DVT in 2009 of left upper extremity
Factor V Leyden mutation
- No longer on anticoagulation
Graves' disease status post ablation with residual hypothyroidism
- Continue levothyroxine
Hypercholesterolemia
BPH
- Bladder scan protocol and started on Flomax
Constipation with intermittent overflow diarrhea
- Continue with regular bowel movements recommended to add spouse
Iron deficiency anemia
Full code
DVT prophylaxis�heparin
Discussed with patient's spouse at bedside in detail. Spouse wants to take patient home even though PT/OT recs SNF.
More than 30 minutes spent in discharge including
Final examination of the patient
Summarizing hospital stay
Instructions for continuing care to all relevant caregivers
Preparation of discharge records, prescriptions, and referral forms
Total time spent (in minutes): 53
Anticipated Discharge: Today
Subjective/Interval History
-
Date of Service: March 19, 2025
Overnight events noted. Patient with behavioral disturbance with agitation.
Tolerating breakfast.
Objective Data
-
Vital Signs:
Vital Signs
Temp Pulse Resp BP Pulse Ox
97.4 F 62 20 137/68 96
03/19/25 07:00 03/19/25 07:00 03/19/25 07:00 03/19/25 07:00 03/19/25 07:00
I&O
03/18/25 03/19/25 03/20/25
06:59 06:59 06:59
Intake Total 1200 / 1200
Balance 1200 / 1200
--- NOTE | 2025-03-19 11:50 | W.DCSUMMARY ---
Discharge Summary
Discharge Data
Date of Admission: 03/17/25
Date of Discharge: 03/19/25
-
Pending Results: No
Hospital Course
74-year-old male past medical history of advanced dementia, hypertension, hypothyroidism was presenting from home with ambulatory dysfunction. Patient had a fall. Patient underwent imaging studies Lumbar x-ray shows mild compression deformity of
T11 vertebral body as well as mild superior endplate deformities of T12 and L1 vertebral bodies. Hip x-ray shows no evidence of pelvic or proximal femoral fracture, severe discogenic disc disease of L5-S1. CT left lower extremity with no no acute
fracture or malalignment noted. Prostatomegaly noted. Patient was started on Flomax. Patient was eval by PT and OT with plan for rehab. However spouse wanted to take patient home as she did not want patient to go to rehab. Patient be discharged
to home with [facility]. Recommended tylenol for pain control.
Discharge Plan
-
Patient Disposition: Home with Home Care
Discharge Diagnosis/Procedures: Ambulatory dysfunction with fall with T11 compression fracture
Minor left hip ecchymosis from fall
Condition: Fair
Diet: Regular
Activity: As tolerated
Driving Restrictions: No driving
Other Services: [facility]
Referrals:
Suma Lyons MD [Family Provider, [facility]] - in less than 1 week
Prescriptions:
New
acetaminophen [Tylenol Extra Strength] 500 mg Tablet
1,000 mg PO TID Qty: 30 0RF
docusate sodium [Colace] 100 mg capsule
100 mg PO DAILY Qty: 30 0RF
tamsulosin [Flomax] 0.4 mg capsule
0.4 mg PO HS Qty: 30 0RF
Continued
lisinopril 20 MG tablet
20 mg PO DAILY
levothyroxine 100 mcg Tablet
100 mcg PO DAILY
therapeutic multivitamin Tablet
1 tab PO DAILY
rivastigmine 4.6 mg/24 hour Patch 24 Hour
4.6 mg TRANSDERMAL DAILY
Discharge Orders:
Discharge Patient (As Directed); Ordered 03/19/25
Ordered By: Omar Machado
Discharge Date and Time
Discharge Date/Time: 03/19/25 16:02
Print Language: SENEGALESE
--- NOTE | 2025-03-19 11:55 | CM ---
Chart reviewed and residential case manager spoke with patient's spouse, physical therapy are recommending skilled placement, spouse is refusing skilled placement and wants to take patient home with [facility] and private caregivers. Ambulance will need to be set up.
Plan; Home today with private caregivers and [facility]
== END 2025-03-19 16:02 | disposition home health service (06) ==
LOC: 4 WEST ACU 18:03
PROVIDERS: Physician Assistant; ADMITTING PHYSICIAN Hospitalist; ATTENDING PHYSICIAN Hospitalist; EMERGENCY PHYSICIAN Emergency Medicine; FAMILY PHYSICIAN Family Medicine
DX: S22.080A Wedge compression fracture of T11-T12 vertebra, initial encounter for closed fracture (principal); M54.9 Dorsalgia, unspecified; R26.2 Difficulty in walking, not elsewhere classified; M47.817 Spondylosis without myelopathy or radiculopathy, lumbosacral region; M47.816 Spondylosis without myelopathy or radiculopathy, lumbar region; F02.C11 Dementia in other diseases classified elsewhere, severe, with agitation; F02.C18 Dementia in other diseases classified elsewhere, severe, with other behavioral disturbance; W19.XXXA Unspecified fall, initial encounter; Y93.9 Activity, unspecified; Y92.9 Unspecified place or not applicable; S70.02XA Contusion of left hip, initial encounter; K59.00 Constipation, unspecified; I10 Essential (primary) hypertension; G30.9 Alzheimer's disease, unspecified; R19.7 Diarrhea, unspecified; M16.0 Bilateral primary osteoarthritis of hip; M51.379 Other intervertebral disc degeneration, lumbosacral region without mention of lumbar back pain or lower extremity pain; N40.0 Benign prostatic hyperplasia without lower urinary tract symptoms; K40.90 Unilateral inguinal hernia, without obstruction or gangrene, not specified as recurrent; R18.8 Other ascites; N32.89 Other specified disorders of bladder; R93.3 Abnormal findings on diagnostic imaging of other parts of digestive tract; E78.00 Pure hypercholesterolemia, unspecified; D68.51 Activated protein C resistance; E89.0 Postprocedural hypothyroidism; D50.9 Iron deficiency anemia, unspecified; Z95.0 Presence of cardiac pacemaker; Z79.890 Hormone replacement therapy; Z86.718 Personal history of other venous thrombosis and embolism; Z88.1 Allergy status to other antibiotic agents; Z88.0 Allergy status to penicillin; Z98.890 Other specified postprocedural states
CPT/HCPCS: 72110; 73502; 73700; 80053; 85025; 96360; 97163; 97167; 99285; G0378